=== PATIENT | female | born 1965 | race American Indian/Alaskan Native ===

== ENCOUNTER 2018-05-28 13:39 | Outpatient (CLI) | payer OTHER ==
--- NOTE | 2018-05-28 14:10 | XRay Report ---
Left foot 3 views: History: Pain. Findings: No bony or articular abnormality. No fracture, dislocation or periosteal reaction. No soft tissue calcification. Impression: Essentially negative left foot .
== END 2018-05-28 13:40 | disposition home or self-care (01) ==
LOC: SPVIMAG 13:39
PROVIDERS: ATTEND Orthopaedic Surgery Sports Medicine
DX: M79.672 Pain in left foot (principal)